=== PATIENT | male | born 1985 | race Caucasian/White ===

== ENCOUNTER 2016-09-23 13:25 | Emergency (ER) | payer OTHER ==
[~2016-09-23] VITALS: Ht 177.8 cm; Wt 104.3 kg
[~2016-09-23 13:25] MED LIST: BACTRIM DS 8001 TA1 PO; CLARITIN10 MG PO; IBU-8800 MG PO; ZITHROMAX Z PA250 MG PO
[2016-09-23] MEDS ORDERED: LIDOCAINE VISC100 ML MM (13:49)
[2016-09-23] MEDS ORDERED: CLINDAMYCIN HC300 MG PO (13:49)
[2016-09-23] MEDS ORDERED: Peridex 473 ML473 ML PO (13:49)
== END 2016-09-23 14:08 | disposition left against medical advice (07) ==
LOC: ED 13:25
DX: K08.89 Other specified disorders of teeth and supporting structures (principal); I10 Essential (primary) hypertension; F17.200 Nicotine dependence, unspecified, uncomplicated; Z88.0 Allergy status to penicillin

== ENCOUNTER → 2017-12-01 | Outpatient (CLI) | payer OTHER ==
[~2017-12-01] MED LIST changes: +CLINDAMYCIN HC300 MG PO; +LIDOCAINE VISC100 ML MM; +Peridex 473 ML473 ML PO; +ZESTORETIC 20-1 EACH PO
== END | disposition home or self-care (01) ==
LOC: CARD 03:10
DX: I10 Essential (primary) hypertension (principal); E66.9 Obesity, unspecified; F41.9 Anxiety disorder, unspecified; Z71.6 Tobacco abuse counseling; Z79.899 Other long term (current) drug therapy

== ENCOUNTER → 2017-12-02 | Outpatient (CLI) | payer OTHER | END | disposition home or self-care (01) | LOC: RESCLI 00:22 | DX: F41.9 Anxiety disorder, unspecified (principal); E66.9 Obesity, unspecified; R00.0 Tachycardia, unspecified; I10 Essential (primary) hypertension; Z71.6 Tobacco abuse counseling; Z79.899 Other long term (current) drug therapy ==

== ENCOUNTER → 2018-01-05 | Outpatient (CLI) | payer OTHER | END | disposition home or self-care (01) | LOC: CP 10:19 | DX: I10 Essential (primary) hypertension (principal); E66.9 Obesity, unspecified; Z72.0 Tobacco use ==

== ENCOUNTER → 2018-01-06 | Outpatient (CLI) | payer OTHER ==
[2018-01-06 16:15] LABS: VITAMIN D, 25-HYDROXY 18.8 ng/mL (30-100)
== END | disposition home or self-care (01) ==
LOC: RESCLI 01:14
PROVIDERS: Student in an Organized Health Care Education/Training Program
DX: Z23 Encounter for immunization (principal); I10 Essential (primary) hypertension; F41.9 Anxiety disorder, unspecified; E66.9 Obesity, unspecified; R00.0 Tachycardia, unspecified; J45.20 Mild intermittent asthma, uncomplicated; Z71.6 Tobacco abuse counseling; Z79.899 Other long term (current) drug therapy; Z88.8 Allergy status to other drugs, medicaments and biological substances

== ENCOUNTER 2018-10-05 22:47 | Emergency (ER) | payer BC, OTHER ==
[~2018-10-05] VITALS: Ht 177.8 cm; Wt 99.8 kg
[2018-10-06 00:04] LABS: BASO # 0.1 10*3/uL (0.0-0.1); BASO % 0.4 % (0.0-1.0); EOS # 0.4 10*3/uL (0.0-0.4); EOS % 2.5 % (1.0-4.0); HEMATOCRIT 37.7 % (42.0-52.0); HEMOGLOBIN 13.1 g/dl (14.0-18.0); LYMPH # 2.8 10*3/uL (1.3-4.4); MEAN CELL VOLUME 88.1 fl (80.0-94.0); MEAN CORPUSCULAR HGB 30.6 pg (27.0-31.0); MEAN CORPUSCULAR HGB CONC 34.7 g/dl (33.0-37.0); MEAN PLATELET VOLUME 9.4 fl (9.6-12.3); MONO # 1.3 10*3/uL (0.1-1.0); MONO % 9.4 % (3.0-9.0); NEUT # 9.3 10*3/uL (2.3-7.9); NEUT % 67.3 % (47.0-73.0); PLATELET COUNT AUTOMATED 254 10*3/uL (130-400); RED BLOOD COUNT 4.28 10*6/uL (4.50-5.90); RED CELL DISTRI WIDTH 12.2 % (0-14.5); WHITE BLOOD COUNT 13.8 10*3/uL (4.8-10.8)
[2018-10-06 00:21] LABS: INTERNATIONAL NORM RATIO 0.9 (2.0-3.5)
[2018-10-06 00:22] LABS: ALBUMIN 3.4 gm/dl (3.1-4.5); ALKALINE PHOSPHATASE 90 U/L (45-117); BUN 12 mg/dl (7-24); CHLORIDE 103 mmol/L (98-107); CREATININE 0.95 mg/dL (0.70-1.30); POTASSIUM 3.2 mmol/L (3.5-5.1); SGOT/AST 21 IU/L (3-35); SGPT/ALT 20 U/L (12-78); SODIUM 137 mmol/L (136-145)
[2018-10-06 00:24] LABS: TROPONIN I < 0.015 ng/ml (<0.045)
== END 2018-10-06 01:19 | disposition home or self-care (01) ==
LOC: ED 22:47
PROVIDERS: Physician Assistant
DX: I73.00 Raynaud's syndrome without gangrene (principal); E86.0 Dehydration; Z88.0 Allergy status to penicillin; Z79.899 Other long term (current) drug therapy

== ENCOUNTER 2019-12-02 01:25 | Emergency (ER) | payer BC, OTHER ==
[~2019-12-02] VITALS: Ht 177.8 cm; Wt 83.9 kg
[2019-12-02 02:11] LABS: BASO # 0.1 10*3/uL (0.0-0.1); BASO % 0.6 % (0.0-1.0); EOS # 0.4 10*3/uL (0.0-0.4); EOS % 2.7 % (1.0-4.0); LYMPH # 2.2 10*3/uL (1.3-4.4); MEAN CELL VOLUME 91.5 fl (80.0-94.0); MEAN CORPUSCULAR HGB 30.5 pg (27.0-31.0); MEAN CORPUSCULAR HGB CONC 33.3 g/dl (33.0-37.0); MEAN PLATELET VOLUME 9.1 fl (9.6-12.3); MONO # 1.3 10*3/uL (0.1-1.0); MONO % 9.7 % (3.0-9.0); NEUT # 9.8 10*3/uL (2.3-7.9); NEUT % 70.7 % (47.0-73.0); PLATELET COUNT AUTOMATED 342 10*3/uL (130-400); RED BLOOD COUNT 4.59 10*6/uL (4.50-5.90); RED CELL DISTRI WIDTH 12.6 % (0-14.5); WHITE BLOOD COUNT 13.9 10*3/uL (4.8-10.8)
[2019-12-02 02:29] LABS: ALBUMIN 3.6 gm/dl (3.1-4.5); ALKALINE PHOSPHATASE 74 U/L (45-117); BUN 13 mg/dl (7-24); CHLORIDE 105 mmol/L (98-107); CREATININE 0.95 mg/dL (0.70-1.30); POTASSIUM 3.9 mmol/L (3.5-5.1); SGOT/AST 10 IU/L (3-35); SGPT/ALT 14 U/L (12-78); SODIUM 136 mmol/L (136-145); TOTAL PROTEIN 6.8 gm/dL (6.4-8.2)
[2019-12-02 02:34] LABS: TROPONIN I < 0.015 ng/ml (<0.045)
[2019-12-02] MEDS ORDERED: LISINOPRIL10 M1 PO ×3 (02:45→02:47)
== END 2019-12-02 03:16 | disposition home or self-care (01) ==
LOC: ED 01:25
PROVIDERS: Emergency Medicine
DX: I10 Essential (primary) hypertension (principal); Z91.14 Patient's other noncompliance with medication regimen

== ENCOUNTER → 2019-12-08 | Emergency (ER) | payer BC, OTHER ==
[~2019-12-08] VITALS: Ht 177.8 cm; Wt 86.2 kg
[~2019-12-08] MED LIST changes: +LISINOPRIL10 M1 PO
[2019-12-08 21:09] LABS: BASO # 0.1 10*3/uL (0.0-0.1); BASO % 0.7 % (0.0-1.0); EOS # 0.4 10*3/uL (0.0-0.4); EOS % 3.3 % (1.0-4.0); HEMATOCRIT 43.9 % (42.0-52.0); LYMPH # 2.4 10*3/uL (1.3-4.4); LYMPH % 19.8 % (27.0-41.0); MEAN CORPUSCULAR HGB 30.7 pg (27.0-31.0); MEAN PLATELET VOLUME 9.4 fl (9.6-12.3); MONO # 1.1 10*3/uL (0.1-1.0); MONO % 8.7 % (3.0-9.0); NEUT # 8.3 10*3/uL (2.3-7.9); NEUT % 67.2 % (47.0-73.0); PLATELET COUNT AUTOMATED 336 10*3/uL (130-400); RED BLOOD COUNT 4.72 10*6/uL (4.50-5.90); RED CELL DISTRI WIDTH 12.7 % (0-14.5); WHITE BLOOD COUNT 12.3 10*3/uL (4.8-10.8)
[2019-12-08 21:21] LABS: BUN 8 mg/dl (7-24); CHLORIDE 102 mmol/L (98-107); CREATININE 0.98 mg/dL (0.70-1.30); SODIUM 137 mmol/L (136-145)
[2019-12-08 21:42] LABS: ACETAMINOPHEN (TYLENOL) < 5.0 ug/ml (10-30); ETHYL ALCOHOL < 3.0 mg/dl (<3)
[2019-12-08 22:01] LABS: URINE AMPHETAMINES < 1000 (1000ng/ml); URINE BARBITURATES < 200 (200ng/ml); URINE BENZODIAZEPINES < 200 (200ng/ml); URINE CANNABINOIDS (THC) < 50 (50ng/ml); URINE COCAINE < 300 (300ng/ml); URINE METHADONE < 300 (300ng/ml); URINE OPIATES < 300 (300ng/ml)
[2019-12-08 22:02] LABS: URINE PHENCYCLIDINE < 25 (25ng/ml)
[2019-12-08 22:04] LABS: BILIRUBIN Negative; BLOOD Negative (NEGATIVE); CLARITY Clear (CLEAR); COLOR Dark Yellow (YELLOW); GLUCOSE Negative; KETONE Trace; LEUKO ESTERASE Negative (NEGATIVE); MUCOUS TRACE; NITRITE Negative (NEGATIVE); PH 5.5 (4.5-8.0); RBC 0-2 rbc/hpf (0-2); SPECIFIC GRAVITY >= 1.030 (1.001-1.030); WBC 0-2 wbc/hpf (0-5)
== END ==
LOC: ED 20:11
PROVIDERS: Emergency Medicine Emergency Medical Services
DX: I10 Essential (primary) hypertension (principal); R56.9 Unspecified convulsions; F17.200 Nicotine dependence, unspecified, uncomplicated; Z88.0 Allergy status to penicillin; Z79.899 Other long term (current) drug therapy

== ENCOUNTER 2020-01-04 15:12 | Emergency (ER) | payer BC, OTHER ==
[~2020-01-04] VITALS: Ht 177.8 cm; Wt 89.8 kg
== END 2020-01-04 17:26 | disposition left against medical advice (07) ==
LOC: ED 15:12
DX: R51.9 Headache, unspecified (principal); Z53.21 Procedure and treatment not carried out due to patient leaving prior to being seen by health care provider

== ENCOUNTER 2020-09-23 09:39 | Emergency (ER) | payer OTHER ==
[~2020-09-23] VITALS: Ht 177.8 cm; Wt 90.7 kg
== END 2020-09-23 10:05 | disposition left against medical advice (07) ==
LOC: ED 09:39
DX: G43.909 Migraine, unspecified, not intractable, without status migrainosus (principal); Z53.21 Procedure and treatment not carried out due to patient leaving prior to being seen by health care provider

== ENCOUNTER 2020-10-24 23:54 | Emergency (ER) | payer OTHER ==
[2020-10-25 02:32] LABS: BASO # 0.1 10*3/uL (0.0-0.1); BASO % 0.7 % (0.0-1.0); EOS # 0.1 10*3/uL (0.0-0.4); EOS % 0.7 % (1.0-4.0); HEMATOCRIT 43.2 % (42.0-52.0); LYMPH # 1.7 10*3/uL (1.3-4.4); LYMPH % 12.3 % (27.0-41.0); MEAN CORPUSCULAR HGB 30.8 pg (27.0-31.0); MEAN CORPUSCULAR HGB CONC 34.3 g/dl (33.0-37.0); NEUT # 10.8 10*3/uL (2.3-7.9); NEUT % 78.9 % (47.0-73.0); PLATELET COUNT AUTOMATED 316 10*3/uL (130-400); RED CELL DISTRI WIDTH 12.4 % (0-14.5); WHITE BLOOD COUNT 13.7 10*3/uL (4.8-10.8)
[2020-10-25 02:51] LABS: BILIRUBIN Negative (Negative); BLOOD Negative (Negative); CLARITY Cloudy (Clear); COLOR Dark Yellow (Yellow); GLUCOSE Negative (Negative); KETONE Trace (Negative); LEUKO ESTERASE Negative (Negative); NITRITE Negative (Negative); PH 5.5 (4.5-8.0); SPECIFIC GRAVITY >= 1.030 (1.001-1.030)
[2020-10-25 03:00] LABS: URINE AMPHETAMINES > 1000 (1000ng/ml); URINE BARBITURATES < 200 (200ng/ml); URINE BENZODIAZEPINES < 200 (200ng/ml); URINE CANNABINOIDS (THC) > 50 (50ng/ml); URINE COCAINE < 300 (300ng/ml); URINE METHADONE < 300 (300ng/ml); URINE OPIATES < 300 (300ng/ml); URINE PHENCYCLIDINE < 25 (25ng/ml)
[2020-10-25 03:05] LABS: ALBUMIN 4.3 gm/dl (3.1-4.5); ALKALINE PHOSPHATASE 86 U/L (45-117); BUN 17 mg/dl (7-24); CHLORIDE 110 mmol/L (98-107); CPK 412 U/L (39-308); CREATININE 1.32 mg/dL (0.70-1.30); POTASSIUM 3.7 mmol/L (3.5-5.1); SGOT/AST 17 IU/L (3-35); SGPT/ALT 17 U/L (12-78); SODIUM 144 mmol/L (136-145); TOTAL PROTEIN 7.8 gm/dL (6.4-8.2)
== END 2020-10-25 13:21 | disposition home or self-care (01) ==
LOC: ED 23:54
PROVIDERS: Internal Medicine
DX: F19.10 Other psychoactive substance abuse, uncomplicated (principal); R41.82 Altered mental status, unspecified; Z88.0 Allergy status to penicillin; Z79.899 Other long term (current) drug therapy

== ENCOUNTER 2023-02-23 08:06 | Emergency (ER) | payer OTHER | END 2023-02-23 08:20 | disposition left against medical advice (07) | LOC: ED 08:06 | DX: H92.02 Otalgia, left ear (principal); Z88.0 Allergy status to penicillin; Z79.899 Other long term (current) drug therapy; Z53.21 Procedure and treatment not carried out due to patient leaving prior to being seen by health care provider ==